=== PATIENT | female | born 1990 | race African-American/Black ===

== ENCOUNTER 2021-06-17 12:27 | Emergency (ER) | payer OTHER ==
[~2021-06-17] VITALS: Ht 134.6 cm; Wt 45.0 kg
[2021-06-17 15:01] VITALS: BP 113/80
== END 2021-06-17 15:21 | disposition home or self-care (01) ==
LOC: ER 12:27 → EDBD 12:27 → ER 15:21
DX: U07.1 COVID-19 (principal)
CPT/HCPCS: 87426; 99283